=== PATIENT | female | born 1950 | race Caucasian/White ===

== ENCOUNTER 2017-04-22 07:14 | Outpatient (CLI) | payer MEDICARE | END 2017-04-22 07:15 | disposition home or self-care (01) | LOC: BICMAMMO 07:14 | PROVIDERS: ATTEND Obstetrics & Gynecology | DX: Z12.31 Encounter for screening mammogram for malignant neoplasm of breast (principal) | CPT/HCPCS: 77063; G0202; 77067 ==

== ENCOUNTER 2017-11-23 14:44 | Outpatient (CLI) | payer MEDICARE | END 2017-11-23 14:45 | disposition home or self-care (01) | LOC: CTENTCT 14:44 | PROVIDERS: ATTEND Otolaryngology Plastic Surgery within the Head & Neck | DX: J32.9 Chronic sinusitis, unspecified (principal) | CPT/HCPCS: 70486 ==

== ENCOUNTER 2018-01-12 14:11 | Outpatient (CLI) | payer MEDICARE | END 2018-01-12 14:12 | disposition home or self-care (01) | LOC: BICRAD 14:11 | PROVIDERS: ATTEND Specialist | DX: R09.1 Pleurisy (principal); R68.83 Chills (without fever) | CPT/HCPCS: 71046 ==

== ENCOUNTER 2018-01-14 08:04 | Outpatient (CLI) | payer MEDICARE ==
[2018-01-14] MEDS ORDERED: ISOVUE-370 76%-LOCM 1 ML ONE (08:17)
[2018-01-14 08:55] LABS: Estimated GFR-MDRD - POC Greater than 90
== END 2018-01-14 08:05 | disposition home or self-care (01) ==
LOC: BICCT 08:04
PROVIDERS: ATTEND Specialist
DX: R09.1 Pleurisy (principal); R91.8 Other nonspecific abnormal finding of lung field
CPT/HCPCS: 71260; 82565

== ENCOUNTER 2018-02-10 09:00 | Outpatient (CLI) | payer MEDICARE ==
--- NOTE | 2018-02-10 10:17 | RAD ---
PA AND LATERAL CHEST: HISTORY: Pleurisy and chills. COMPARISON: None. FINDINGS: Heart size is within normal limits. There are parenchymal changes seen in the region of the lingula which is suggestive of an infiltrate. Underlying mass is not totally excluded and followup chest scar ms to resolution are recommended. IMPRESSION: Left perihilar lingual infiltrate. Followup chest films to resolution are recommended. POS: [facility]
== END 2018-02-10 09:01 | disposition home or self-care (01) ==
LOC: RAD 09:00
PROVIDERS: ATTEND Internal Medicine Critical Care Medicine
DX: R06.00 Dyspnea, unspecified (principal); R91.8 Other nonspecific abnormal finding of lung field
CPT/HCPCS: 71046

== ENCOUNTER 2018-04-08 10:04 | Outpatient (CLI) | payer MEDICARE ==
--- NOTE | 2018-04-08 10:34 | RAD ---
FRONTAL RADIOGRAPH CHEST: Date: 04-08-18 Comparison: 02-10-18 History: Re-evaluate lingular infiltrate, dyspnea. FINDINGS: There is mild increased linear density in the left perihilar region, continuing to improve when thelma red to prior imaging. There is no pneumothorax, pleural fluid, lobar consolidation or alveolar edema. There is increased linear interstitial density with pulmonary hyperinflation consistent with airtrap ping. IMPRESSION: Minimal residual opacity in the left perihilar region. Interstitial opacity and pulmonary vascular co ngestion suggesting COPD in the proper clinical setting. POS: [facility]
== END 2018-04-08 10:05 | disposition home or self-care (01) ==
LOC: RAD 10:04
PROVIDERS: ATTEND Internal Medicine Critical Care Medicine
DX: R06.00 Dyspnea, unspecified (principal); R91.8 Other nonspecific abnormal finding of lung field; R09.89 Other specified symptoms and signs involving the circulatory and respiratory systems
CPT/HCPCS: 71046

== ENCOUNTER 2018-05-05 12:03 | Outpatient (CLI) | payer MEDICARE, OTHER | END 2018-05-05 12:04 | disposition home or self-care (01) | LOC: BICMAMMO 12:03 | PROVIDERS: ATTEND Obstetrics & Gynecology | DX: Z12.31 Encounter for screening mammogram for malignant neoplasm of breast (principal); Z80.3 Family history of malignant neoplasm of breast | CPT/HCPCS: 77063; 77067 ==

== ENCOUNTER 2018-10-21 11:39 | Outpatient (CLI) | payer MEDICARE, OTHER ==
--- NOTE | 2018-10-21 13:03 | RAD ---
EXAM: CHEST TWO VIEWS: 10/21/18 HISTORY: Dyspnea. COMPARISON: 04/08/18 FINDINGS: Minimal bilateral hyperinflation with some changes in the lingula. No confluent pneumonia, overt williams a, or pleural effusions. IMPRESSION: Stable appearing chronic changes, particularly in the lingula. No significant new process. Atheroscle rosis of the aorta. POS: [facility]
== END 2018-10-21 11:40 | disposition home or self-care (01) ==
LOC: RAD 11:39
PROVIDERS: ATTEND Internal Medicine Critical Care Medicine
DX: R06.00 Dyspnea, unspecified (principal); I70.0 Atherosclerosis of aorta
CPT/HCPCS: 71046

== ENCOUNTER 2019-05-06 09:39 | Outpatient (CLI) | payer MEDICARE, OTHER ==
--- NOTE | 2019-05-06 10:12 | MMO ---
Bilateral MAMMO Bilat Screen [facility]. CLINICAL HISTORY: Patient is 68 years old and is seen for screening. The patient has the following family history of breast cancer: mother and maternal aunt. The patient has no personal history of cancer. The patient has a history of bilateral Breast reduction in April, - benign and bilateral Cyst Aspiration - benign. VIEWS: The views performed were: bilateral craniocaudal with tomosynthesis and bilateral mediolateral oblique with tomosynthesis. FILMS COMPARED: The present examination has been compared to prior imaging studies performed at [facility] on 12/12/2015, 03/31/2016, 04/22/2017 and 05/05/2018. This study has been interpreted with the assistance of computer-aided detection. MAMMOGRAM FINDINGS: There are scattered fibroglandular densities. There are benign appearing and vascular calcifications seen in both breasts. There are benign scattered densities in both breasts. There are no suspicious masses, suspicious calcifications, or new areas of architectural distortion. IMPRESSION: THERE IS NO MAMMOGRAPHIC EVIDENCE OF MALIGNANCY. A ROUTINE FOLLOW-UP MAMMOGRAM IN 1 YEAR IS RECOMMENDED. THE RESULTS OF THIS EXAM WERE SENT TO THE PATIENT. ACR BI-RADS Category 2 - Benign finding MAMMOGRAPHY NOTE: 1. A negative mammogram report should not delay a biopsy if a dominant of clinically suspicious mass is present. 2. Approximately 10% to 15% of breast cancers are not detected by mammography. 3. Adenosis and dense breasts may obscure an underlying neoplasm. Reported by: NANNETTE PITTMAN MD Electonically Signed: [id number]
== END 2019-05-06 09:40 | disposition home or self-care (01) ==
LOC: BICMAMMO 09:39
PROVIDERS: ATTEND Obstetrics & Gynecology
DX: Z12.31 Encounter for screening mammogram for malignant neoplasm of breast (principal); Z80.3 Family history of malignant neoplasm of breast; Z98.890 Other specified postprocedural states
CPT/HCPCS: 77063; 77067

== ENCOUNTER 2019-10-12 09:20 | Outpatient (CLI) | payer MEDICARE, OTHER ==
--- NOTE | 2019-10-12 09:35 | RAD ---
RADIOGRAPH CHEST 2 VIEWS: DATE: 10/12/2019 HISTORY: 68-year-old female with dyspnea FINDINGS: There is no airspace density, pulmonary edema, pleural effusion, pneumothorax, or cardiomegaly. Small pulmonary scar at anterior segment of left upper lobe. IMPRESSION: No acute cardiopulmonary findings.
== END 2019-10-12 09:21 | disposition home or self-care (01) ==
LOC: BICRAD 09:20
PROVIDERS: ATTEND Internal Medicine Critical Care Medicine
DX: R06.00 Dyspnea, unspecified (principal)
CPT/HCPCS: 71046

== ENCOUNTER 2020-05-09 10:34 | Outpatient (CLI) | payer MEDICARE, OTHER ==
--- NOTE | 2020-05-09 11:08 | MMO ---
Bilateral MAMMO Bilat Screen [facility]. CLINICAL HISTORY: Patient is 69 years old and is seen for screening. The patient has the following family history of breast cancer: mother and maternal aunt. The patient has no personal history of cancer. The patient has a history of bilateral Breast reduction in April, - benign and bilateral Cyst Aspiration - benign. VIEWS: The views performed were: bilateral craniocaudal with tomosynthesis and bilateral mediolateral oblique with tomosynthesis. FILMS COMPARED: The present examination has been compared to prior imaging studies performed at [facility] on 03/31/2016, 04/22/2017, 05/05/2018 and 05/06/2019. This study has been interpreted with the assistance of computer-aided detection. MAMMOGRAM FINDINGS: There are scattered fibroglandular densities. Finding 1: There are stable benign appearing calcifications seen in both breasts. Finding 2: There are multiple round masses of varying size with circumscribed margins seen in both breasts. There are no suspicious masses, suspicious calcifications, or new areas of architectural distortion. IMPRESSION: THERE IS NO MAMMOGRAPHIC EVIDENCE OF MALIGNANCY. A ROUTINE FOLLOW-UP MAMMOGRAM IN 1 YEAR IS RECOMMENDED. THE RESULTS OF THIS EXAM WERE SENT TO THE PATIENT. ACR BI-RADS Category 2 - Benign finding MAMMOGRAPHY NOTE: 1. A negative mammogram report should not delay a biopsy if a dominant of clinically suspicious mass is present. 2. Approximately 10% to 15% of breast cancers are not detected by mammography. 3. Adenosis and dense breasts may obscure an underlying neoplasm. Reported by: JESSICA BRAVO MD Electonically Signed: [id number]
== END 2020-05-09 10:35 | disposition home or self-care (01) ==
LOC: BICMAMMO 10:34
PROVIDERS: ATTEND Obstetrics & Gynecology
DX: Z12.31 Encounter for screening mammogram for malignant neoplasm of breast (principal); Z80.3 Family history of malignant neoplasm of breast; Z98.82 Breast implant status
CPT/HCPCS: 77063; 77067

== ENCOUNTER 2020-10-11 09:42 | Outpatient (CLI) | payer MEDICARE, OTHER | END 2020-10-11 09:43 | disposition home or self-care (01) | LOC: BICRAD 09:42 | PROVIDERS: ATTEND Internal Medicine Critical Care Medicine | DX: R06.00 Dyspnea, unspecified (principal) | CPT/HCPCS: 71046 ==

== ENCOUNTER 2021-06-04 10:24 | Outpatient (CLI) | payer MEDICARE, OTHER | END 2021-06-04 10:25 | disposition home or self-care (01) | LOC: BICMAMMO 10:24 | PROVIDERS: ATTEND Obstetrics & Gynecology | DX: Z12.31 Encounter for screening mammogram for malignant neoplasm of breast (principal); Z80.3 Family history of malignant neoplasm of breast; Z98.82 Breast implant status | CPT/HCPCS: 77063; 77067 ==

== ENCOUNTER 2021-06-12 08:57 | Outpatient (CLI) | payer MEDICARE, OTHER | END 2021-06-12 08:58 | disposition home or self-care (01) | LOC: BICULT 08:57 | PROVIDERS: ATTEND Obstetrics & Gynecology | DX: R92.8 Other abnormal and inconclusive findings on diagnostic imaging of breast (principal) ==

== ENCOUNTER 2022-06-26 14:43 | Outpatient (CLI) | payer MEDICARE, OTHER | END 2022-06-26 14:44 | disposition home or self-care (01) | LOC: BICMAMMO 14:43 | PROVIDERS: ATTEND Obstetrics & Gynecology | DX: Z12.31 Encounter for screening mammogram for malignant neoplasm of breast (principal); M81.0 Age-related osteoporosis without current pathological fracture; M81.8 Other osteoporosis without current pathological fracture; N63.10 Unspecified lump in the right breast, unspecified quadrant; N63.20 Unspecified lump in the left breast, unspecified quadrant; Z90.13 Acquired absence of bilateral breasts and nipples; Z91.89 Other specified personal risk factors, not elsewhere classified; Z80.3 Family history of malignant neoplasm of breast | CPT/HCPCS: 77063; 77067; 77080 ==

== ENCOUNTER 2022-06-30 13:47 | Outpatient (CLI) | payer MEDICARE, OTHER | END 2022-06-30 13:48 | disposition home or self-care (01) | LOC: BICULT 13:47 | PROVIDERS: ATTEND Obstetrics & Gynecology | DX: R92.8 Other abnormal and inconclusive findings on diagnostic imaging of breast (principal) ==

== ENCOUNTER 2023-04-02 11:01 | Outpatient (CLI) | payer MEDICARE, OTHER | END 2023-04-02 11:02 | disposition home or self-care (01) | LOC: RAD 11:01 | PROVIDERS: ATTEND Internal Medicine Critical Care Medicine | DX: R06.00 Dyspnea, unspecified (principal); J98.4 Other disorders of lung | CPT/HCPCS: 71046 ==

== ENCOUNTER 2025-02-13 09:50 | Outpatient (CLI) | payer MEDICARE, OTHER | END 2025-02-13 09:51 | disposition home or self-care (01) | LOC: RAD 09:50 | PROVIDERS: ATTEND Internal Medicine Critical Care Medicine | DX: R06.00 Dyspnea, unspecified (principal) | CPT/HCPCS: 71046 ==